=== PATIENT | male | born 1965 | race Caucasian/White ===

== ENCOUNTER 2018-07-15 11:36 | Inpatient (IN) | payer MEDICARE ==
[~2018-07-15] VITALS: Ht 180.3 cm; Wt 96.0 kg
--- NOTE | 2018-07-15 11:49 | NUR ---
PATIENT TO ROOM VIA WHEELCHAIR. SMALL PERSONAL BAG TO ROOM WITH PATIENT.
[2018-07-15] MEDS ORDERED: ASPIRIN81 MG PO (12:39)
[2018-07-15] MEDS ORDERED: CLOPIDOGREL75 MG PO (12:39)
[2018-07-15] MEDS ORDERED: XANAX0.5 MG PO (12:39)
[2018-07-15] MEDS ORDERED: CARVEDILOL6.25 MG PO (12:39)
[2018-07-15] MEDS ORDERED: DOXAZOSIN1 MG PO (12:40)
[2018-07-15] MEDS ORDERED: VITAMIN B 12100 MCG PO (12:40)
[2018-07-15] MEDS ORDERED: GABAPENTIN300 M2 PO (12:40)
[2018-07-15] MEDS ORDERED: LEVOTHYROXIN125 MCG PO (12:41)
[2018-07-15] MEDS ORDERED: VISTARIL 50MG C50 M1 PO (12:41)
[2018-07-15] MEDS ORDERED: MAGN OXIDE PO (12:42)
[2018-07-15] MEDS ORDERED: ONDANSETRON HCL4 MG PO (12:42)
[2018-07-15] MEDS ORDERED: PANTOPRAZOLE SO40 MG PO (12:42)
[2018-07-15] MEDS ORDERED: REGLAN10 MG PO (12:43)
[2018-07-15] MEDS ORDERED: SUCRALFATE1 GM PO (12:43)
[2018-07-15] MEDS ORDERED: ZOLPIDEM10 MG PO (12:43)
--- NOTE | 2018-07-15 12:51 | NUR ---
DR. CUEVAS SPEAKING WITH DR. REECE, AFTER PT STATES HE WANTS TO BE ADMITTED FOR VOMITING, ALTHOUGH HE HAS HAD NO VOMITING FOR 4 HOURS. PTS LIPS AND TONGUE MOIST , NO DRYNESS NOTED.
--- NOTE | 2018-07-15 12:56 | NUR ---
DR REECE WILL SEE PT AT 3 TODAY. WE WILL DRAW SOME BLOOD FOR HIM TO TAKE WITH HIM
[2018-07-15 13:17] LABS: HEMATOCRIT 32.1 % (39.0-50.0); HEMOGLOBIN 11.2 g/dl (14.0-18.0); IMMATURE GRANULOCYTES 0.2 % (0.0-5.0); MEAN CELL VOLUME 84.3 fL CALC (80.0-100.0); MEAN CORPUSCULAR HGB 29.4 pG CALC (26.0-32.0); MEAN CORPUSCULAR HGB CONC 34.9 g/L CALC (32.0-36.0); NEUT# 3.55 thou/uL (1.82-7.42); RED BLOOD COUNT 3.81 mill/uL (4.70-6.10); RED CELL DISTRI WIDTH 13.6 % (11.5-15.5)
[2018-07-15 13:25] LABS: BARBITURATES NEGATIVE (NEGATIVE); COCAINE NEGATIVE (NEGATIVE); METHADONE NEGATIVE (NEGATIVE); OXCYCODONE NEGATIVE (NEGATIVE); TETRAHYDROCANNABIONOL NEGATIVE (NEGATIVE); TRICYLIC ANTIDEPRESSANTS NEGATIVE (NEGATIVE)
[2018-07-15 13:36] LABS: ALBUMIN 5.5 g/dL (3.2-5.0); ALKALINE PHOSPHATASE 89 u/l (38-126); ANION GAP 22 (6-22 (CALC)); BILIRUBIN, TOTAL 0.6 mg/dL (0.0-1.4); BUN 11 mg/dL (9-20); BUN/CREATININE RATIO 8 (12-20 (CALC)); CARBON DIOXIDE 25 mmol/l (22-30); CHLORIDE 88 mmol/l (95-108); CREATININE 1.4 mg/dL (0.7-1.3); GFR 53 ML/MIN (>=60 (CALC)); GFR FOR AFR.AMER. > 60 ML/MIN (>=60 (CALC)); POTASSIUM 5.1 mmol/l (3.5-5.1); SGOT/AST 35 u/l (17-59); SODIUM 129 mmol/l (137-146); TOTAL PROTEIN 9.1 g/dL (6.3-8.2)
--- NOTE | 2018-07-15 13:55 | NUR ---
DR. CUEVAS SPEAKING WITH DR. REECE ABOUT POSSIBLE ADMISSION AFTER LABS CAME BACK. NO VOMITING SINCE ARRIVAL, PT REMAINS ALERT/ORIENTED X3.
--- NOTE | 2018-07-15 14:15 | NUR ---
4 UNSUCCESSFUL ATTEMPTS AT IV BY ER STAFF, PEG BEDOLLA CALLED FOR IV ACCESS
--- NOTE | 2018-07-15 14:39 | NUR ---
WAITING FOR IV PLACEMENT TO GIVE MEDICATIONS ORDERED. PT RESTING QUIETLY ON STRETCHER, STILL NO VOMITING SINCE ARRIVAL. CALL LIGHT WITHIN REACH, WARM BLANKET
[2018-07-15 14:46] LABS: TSH, 3RD GENERATION 0.78 uIU/mL (0.47 - 4.68)
--- NOTE | 2018-07-15 15:37 | NUR ---
PEG OBTAINED A 22 IV SITE RAC UNDER ULTRASOUND. MAGNESIUM INFUSING. PT REMAINS ALERT/ORIENTED X3, WITH NO VOMITING SINCE ARRIVAL
--- NOTE | 2018-07-15 15:47 | NUR ---
NOTIFIED DOCTOR OF NEED FOR TELEMENTRY FOR MED SURG IF PT IS ON MAGNESIUM DRIP.
--- NOTE | 2018-07-15 16:40 | NUR ---
PT TRANSPORTED TO [facility] VIA STRETCHER ON PRODUCT TRANSFER PUMPER IN STABLE CONDITION
[2018-07-15 16:47] VITALS: BP 152/90
--- NOTE | 2018-07-15 19:00 | NUR ---
REPORT RECIVED FROM TOAN RAMOS. PT RESTING IN BED. RESPIRATIONS EVEN AND UNLABORED, ON RA. LUNGS SOUND CLEAR. PEDAL PULSES WEAK. TELE MONITOR IN PLACE. IV # 22 RAC INFUSING NS @ 75 ML/HR, APPEARS HEALTHY. SKIN INTACT. PT COMPLAINS OF PAIN AT AN 8 OUT OF 10. NO SIGNS OR SYMPTOMS OF PAIN NOTED. PHYSICIAN AWARE OF PAIN LEVEL NO PAIN MEDICATION ORDERED AT THIS TIME, OFFERED ALTERNATIVE MEASSURES SUCH REPOSITIONING AND ICE PACK, PT DENIED. SAFETY PRECAUTIONS IN PLACE. CALL LIGHT WITHIN REACH. WILL CONTINUE TO MONITOR.
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
[2018-07-15 20:00] VITALS: BP 151/81
[2018-07-15 23:56] VITALS: BP 113/67
--- NOTE | 2018-07-16 | NUR ---
PROVIDED PT WITH A ICE CREAM AND GRAM CRACKERS PER PT REQUEST. PT RESTING IN BED NO SIGNS OR SYMPTOMS OF DISTRESS. WILL CONTINUE TO MONITOR.
[2018-07-16 05:23] VITALS: BP 105/67
[2018-07-16 05:39] LABS: HEMATOCRIT 28.4 % (39.0-50.0); IMMATURE GRANULOCYTES 0.2 % (0.0-5.0); MEAN CELL VOLUME 84.8 fL CALC (80.0-100.0); MEAN CORPUSCULAR HGB 29.9 pG CALC (26.0-32.0); MEAN CORPUSCULAR HGB CONC 35.2 g/L CALC (32.0-36.0); NEUT# 3.3 thou/uL (1.82-7.42); RED BLOOD COUNT 3.35 mill/uL (4.70-6.10); RED CELL DISTRI WIDTH 13.4 % (11.5-15.5)
[2018-07-16 05:50] LABS: ALKALINE PHOSPHATASE 66 u/l (38-126); AMYLASE 46 u/l (30-110); ANION GAP 18 (6-22 (CALC)); BILIRUBIN, TOTAL 0.6 mg/dL (0.0-1.4); BUN 13 mg/dL (9-20); BUN/CREATININE RATIO 10 (12-20 (CALC)); CARBON DIOXIDE 25 mmol/l (22-30); CHLORIDE 93 mmol/l (95-108); CREATININE 1.3 mg/dL (0.7-1.3); GFR 57 ML/MIN (>=60 (CALC)); GFR FOR AFR.AMER. > 60 ML/MIN (>=60 (CALC)); LIPASE 137 u/l (23-300); MAGNESIUM 1.5 mg/dL (1.6-2.3); POTASSIUM 4.6 mmol/l (3.5-5.1); SGOT/AST 25 u/l (17-59); SODIUM 131 mmol/l (137-146)
[2018-07-16 05:53] LABS: ALBUMIN 4.2 g/dL (3.2-5.0)
--- NOTE | 2018-07-16 06:33 | NUR ---
PT SLEEPING IN BED. RESPIRATIONS EVEN AND UNLABORED ON RA. SAFETY PRECAUTIONS IN PLACE, WILL CONTINUE TO MONITOR.
[2018-07-16 07:50] VITALS: BP 139/70
[2018-07-16 11:35] VITALS: BP 116/75
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
[2018-07-16 15:00] VITALS: BP 137/70
--- NOTE | 2018-07-16 15:57 | NUR ---
INQUIRING ABOUT PAIN MEDS AT THIS TIME, ADVISED MD WAS INFORMED, STATED HIS PAIN TO LEGS IS 9/10, ALL OTHER NEEDS ADDRESSED.
--- NOTE | 2018-07-16 19:00 | NUR ---
REPORT RECEIVED FROM TOAN RAMOS. PT RESTING IN BED. ALERT AND ORIENTED. RESPIRATIONS EVEN AND UNLABORED, ON RA, LUNGS SOUND CLEAR. TELE MONITOR IN PLACE. NO IV SITE, NEW SITE TO BE STARTED. PEDAL PULSE WEAK. PT DENIES ANY NEEDS AT THIS TIME. SAFETY PRECAUTIONS IN PLACE. CALL LIGHT WITHIN REACH. WILL CONTINUE TO MONITOR.
[2018-07-16 19:20] VITALS: BP 122/71
[2018-07-16 23:30] VITALS: BP 115/74
--- NOTE | 2018-07-17 | NUR ---
PT SLEEPING IN BED. RESPIRATIONS EVEN AND UNLABORED, ON RA. NO SIGNS OR SYMPTOMS OF DISTRESS. SAFETY PRECAUTIONS IN PLACE. WILL CONTINUE TO MONITOR.
[2018-07-17 04:00] VITALS: BP 122/77
--- NOTE | 2018-07-17 04:00 | NUR ---
PT RESTING IN BED. DENIES ANY NEEDS AT THIS TIME. NO SIGNS OR SYMPTOMS OF DISTRESS. SAFETY PRECAUTIONS IN PLACE. WILL CONTINUE TO MONITOR.
[2018-07-17 05:06] LABS: HEMATOCRIT 28.3 % (39.0-50.0); HEMOGLOBIN 9.7 g/dl (14.0-18.0); IMMATURE GRANULOCYTES 0.2 % (0.0-5.0); MEAN CELL VOLUME 86.5 fL CALC (80.0-100.0); MEAN CORPUSCULAR HGB 29.7 pG CALC (26.0-32.0); MEAN CORPUSCULAR HGB CONC 34.3 g/L CALC (32.0-36.0); NEUT# 2.67 thou/uL (1.82-7.42); RED BLOOD COUNT 3.27 mill/uL (4.70-6.10); RED CELL DISTRI WIDTH 13.4 % (11.5-15.5)
[2018-07-17 05:26] LABS: ALBUMIN 4.2 g/dL (3.2-5.0); ALKALINE PHOSPHATASE 74 u/l (38-126); ANION GAP 17 (6-22 (CALC)); BILIRUBIN, TOTAL 0.4 mg/dL (0.0-1.4); BUN 12 mg/dL (9-20); BUN/CREATININE RATIO 9 (12-20 (CALC)); CARBON DIOXIDE 26 mmol/l (22-30); CHLORIDE 97 mmol/l (95-108); CREATININE 1.3 mg/dL (0.7-1.3); GFR 57 ML/MIN (>=60 (CALC)); GFR FOR AFR.AMER. > 60 ML/MIN (>=60 (CALC)); MAGNESIUM 1.4 mg/dL (1.6-2.3); POTASSIUM 4.5 mmol/l (3.5-5.1); SGOT/AST 22 u/l (17-59); SODIUM 135 mmol/l (137-146)
[2018-07-17 07:52] VITALS: BP 122/75
--- NOTE | 2018-07-17 08:20 | NUR ---
SHIFT CHANGE REPORT, PT SLEEPING BUT AWAKENED TO VERBAL STIMULI, C/O NAUSEA, CONCERN ADDRESSED, IVF INFUSING, TELE MONITOR IN PLACE, CALL NEUMANN IN REACH.
[2018-07-17 11:00] VITALS: BP 146/81
--- NOTE | 2018-07-17 12:10 | NUR ---
REPORT RECEIVED FROM RACHEL. PT IS EATING HIS LUNCH WITH NO S/S OF DISTRESS NOTED. PT DENIES NEEDS AT THIS TIME. CALL LIGHT IN REACH.
--- NOTE | 2018-07-17 16:14 | NUR ---
Discharge instructions given. Patient verbalizes understanding of same. Discharged in stable condition via Wheelchair to Home with staff. All belongings sent with pt.
== END 2018-07-17 16:15 | disposition home or self-care (01) | DRG 74 ==
LOC: ED 11:36 → ED-I 13:59 → ED 14:21 → MS2 14:22
PROVIDERS: Emergency Medicine; ADMIT Internal Medicine Nephrology; ATTEND Internal Medicine Nephrology
PROC: 3E0234Z Introduction of Serum, Toxoid and Vaccine into Muscle, Percutaneous Approach (ICD-10-PCS; principal; 2018-07-17)
DX: E11.43 Type 2 diabetes mellitus with diabetic autonomic (poly)neuropathy (principal); E87.1 Hypo-osmolality and hyponatremia; K31.84 Gastroparesis; I10 Essential (primary) hypertension; J44.9 Chronic obstructive pulmonary disease, unspecified; E83.42 Hypomagnesemia; E87.8 Other disorders of electrolyte and fluid balance, not elsewhere classified; K74.60 Unspecified cirrhosis of liver; I25.10 Atherosclerotic heart disease of native coronary artery without angina pectoris; E11.40 Type 2 diabetes mellitus with diabetic neuropathy, unspecified; E03.9 Hypothyroidism, unspecified; F41.8 Other specified anxiety disorders; Z23 Encounter for immunization; Z95.5 Presence of coronary angioplasty implant and graft
CPT/HCPCS: J3475